=== PATIENT | female | born 1985 | race African-American/Black ===

== ENCOUNTER 2020-04-03 10:52 | Emergency (ER) | payer MEDICAID ==
[~2020-04-03] VITALS: Ht 175.3 cm; Wt 100.0 kg
[2020-04-03 10:58] VITALS: BP 156/92
[2020-04-03] MEDS ORDERED: AZITHROMYCIN 500 MG in DEXT 5% WATER 250 ML IV ONE (11:30)
[2020-04-03 12:13] LABS: BASOPHILS % 0.5 % (0.0-2.0); EOSINOPHILS % 0.4 % (0.0-5.0); HEMATOCRIT. 39.9 % (36.0-48.0); HEMOGLOBIN. 13.2 g/dL (12.0-16.0); LYMPHOCYTES % 40.5 % (20.0-50.0); MEAN CORPUSCULAR HEMOGLOBIN 24.8 pg (28.0-32.0); MEAN CORPUSCULAR VOLUME 74.7 fL (81.0-99.0); MEAN PLATELET VOLUME 8.2 fl (7.4-10.4); NEUTROPHILS % 51.6 % (40.0-76.0); PLATELET 220 x1000/uL (130-400); RED BLOOD CELL COUNT 5.33 mill/uL (4.2-5.4); RED CELL DISTRIBUTION WIDTH 16.7 % (11.6-14.6)
[2020-04-03 12:22] LABS: CHLORIDE 104 mEq/L (98-107)
[2020-04-03 12:24] LABS: INR 1.1; PROTHROMBIN TIME 11.4 sec (9.6-11.0)
[2020-04-03 12:33] LABS: CREATINE KINASE 171 IU/L (26-192)
[2020-04-03 12:33] LABS: BG DEOXYHEMOGLOBIN 7.6 % (0.0-5.0); BG FRACTION INSPIRED OXYGEN 21; BG HCO3 ACT 21.8 mmol/L (22.0-26.0); BG METHEMOGLOBIN 0.3 % (0.0-1.5); BG OXYGEN SATURATION 92.3 % (92.0-98.5); BG OXYHEMOGLOBIN 91.1 % (94.0-97.0); BG PCO2 30.9 mmHg (35.0-45.0); BG PH 7.466 (7.350-7.450); BG SAMPLE SITE LEFT RADIAL; BG TOTAL HEMOGLOBIN 13.6 g/dL (12.0-18.0); BG VENT MODE ROOM AIR
[2020-04-03] MEDS ORDERED: SODIUM CHLORIDE 0.9% 1,000 ML IV ONE (12:45)
[2020-04-03] MEDS ORDERED: DEXAMETHASONE 10 MG/ML VIAL IV ONE (12:45)
== END 2020-04-03 14:11 | disposition left against medical advice (07) ==
LOC: ER 11:04 → CANBEDREQ 17:07
DX: J96.01 Acute respiratory failure with hypoxia (principal); J18.9 Pneumonia, unspecified organism; E11.9 Type 2 diabetes mellitus without complications; Z88.0 Allergy status to penicillin; Z86.19 Personal history of other infectious and parasitic diseases
CPT/HCPCS: 36415; 36600; 71045; 80053; 81025; 82375; 82550; 82728; 82805; 83605; 83615; 83690; 83880; 84145; 84484; 85025; 85384; 85610; 86140; 87040; 93005; 99291; J0456; J7030; J7060